=== PATIENT | female | born 1990 | race Caucasian/White ===

== ENCOUNTER 2017-11-12 09:31 | Inpatient (IN) | payer OTHER ==
[2017-11-12] MEDS ORDERED: METHYLERGONOVINE 0.2 MG INJ IM ×3 (10:00→18:30)
[2017-11-12] MEDS ORDERED: IBUPROFEN 600 MG TAB PO (10:00)
[2017-11-12] MEDS ORDERED: CARBOPROST 250 MCG INJ IM ×3 (10:00→18:30)
[2017-11-12] MEDS ORDERED: AMPICILLIN 2 GM/NS (PMX) 100 ML IV (10:00)
[2017-11-12] MEDS ORDERED: MISOPROSTOL 200 MCG TAB PR ×3 (10:00→18:30)
[2017-11-12] MEDS ORDERED: OXYTOCIN 30 UNITS/LR 500 ML IV ×4 (10:00→18:30)
[2017-11-12] MEDS ORDERED: BUTORPHANOL 2 MG INJ IV (10:00)
[2017-11-12] MEDS ORDERED: LIDOCAINE 1% (MPF) 30 ML INJ INJ (10:00)
[2017-11-12] MEDS ORDERED: CEFAZOLIN 2 GM/50 ML (PMX) 50 ML IVPB (10:18)
[2017-11-12] MEDS ORDERED: CEFAZOLIN 2 GM/50 ML (PMX) 50 ML IV (10:30)
[2017-11-12 10:35] LABS: ADD MAN DIFF? NO
[2017-11-12 10:54] LABS: BASOPHILS % 0.5 % (0.0-2.0); EOSINOPHILS # 0.1 10^3/ul (0.0-0.5); EOSINOPHILS % 0.8 % (0.0-7.0); HEMATOCRIT 34.5 % (37.0-47.0); HEMOGLOBIN 11.1 g/dl (12.0-16.0); LYMPHOCYTES # 1.5 10^3/ul (0.8-2.9); LYMPHOCYTES % 23.4 % (15.0-51.0); MEAN CORPUSCULAR HEMOGLOBIN 28.1 pg (29.0-33.0); MEAN CORPUSCULAR HGB CONC 32.2 g/dl (32.0-37.0); MEAN CORPUSCULAR VOLUME 87.3 fl (82.0-101.0); MONOCYTE # 0.4 10^3/ul (0.3-0.9); MONOCYTES % 6.7 % (0.0-11.0); NEUTROPHIL # 4.3 10^3/ul (1.6-7.5); PLATELET COUNT 243 10^3/UL (140-415); RED BLOOD COUNT 3.95 10^6/ul (4.20-5.40); RED CELL DISTRIBUTION WIDTH 17.8 % (11.5-14.5)
[2017-11-12 10:54] LABS: WHITE BLOOD COUNT 6.3 10^3/ul (4.8-10.8)
[2017-11-12] MEDS: LACTATED RINGER'S 1,000 ML IV ×2 (10:59→12:03)
[2017-11-12] MEDS: AMPICILLIN 2 GM/NS (PMX) 100 ML IV (10:59)
[2017-11-12 11:07] LABS: INR 1.01; PROTIME 13.4 Sec (11.9-14.9)
[2017-11-12 11:08] LABS: PARTIAL THROMBOPLASTIN TIME 30.4 Sec (25.0-35.0)
[2017-11-12 11:45] LABS: HEPATITIS B SURFACE ANTIGEN NEGATIVE (NEGATIVE)
[2017-11-12] MEDS ORDERED: CITRIC ACID/SODIUM CITRATE 15 ML CUP (12:17)
[2017-11-12] MEDS: CITRIC ACID/SODIUM CITRATE 15 ML CUP PO (13:11)
[2017-11-12] MEDS ORDERED: AMPICILLIN 1 GM/NS (PMX) 50 ML IV (14:00)
[2017-11-12] MEDS ORDERED: KETOROLAC 30 MG INJ (14:05)
[2017-11-12] MEDS ORDERED: morphine SULFATE/PF (10 MG/10 ML) INJ (14:05)
[2017-11-12] MEDS ORDERED: METOCLOPRAMIDE 10 MG INJ (14:05)
[2017-11-12] MEDS ORDERED: ONDANSETRON 4 MG INJ (14:05)
[2017-11-12] MEDS ORDERED: PHENYLephrine (100 MCG/ML) 5ML SYG (14:18)
[2017-11-12] MEDS: OXYTOCIN 30 UNITS/LR 500 ML IV ×2 (15:37→18:46)
[2017-11-12] MEDS ORDERED: morphine (1 MG/ML) 10ML SYRINGE IV ×3 (17:00)
[2017-11-12] MEDS ORDERED: morphine 2 MG INJ IV ×3 (17:00)
[2017-11-12] MEDS ORDERED: NALOXONE (0.4 MG/ML) INJ IV (17:00)
[2017-11-12] MEDS ORDERED: ONDANSETRON 4 MG INJ IV ×2 (17:00)
[2017-11-12] MEDS: DIPHENHYDRAMINE 50 MG INJ IV (17:09)
[2017-11-12] MEDS ORDERED: VITAMIN A & D 5 GM OINT PACKET TOP (18:13)
[2017-11-12] MEDS ORDERED: HYDROCODONE/APAP (5/325) TAB PO ×2 (18:30)
[2017-11-12] MEDS ORDERED: LANOLIN 7 GM TUBE TOP (18:30)
[2017-11-12] MEDS: SENNA/DOCUSATE NA (8.6MG/50MG) TAB PO (21:00)
[2017-11-12] MEDS: CEFAZOLIN 1 GM/50 ML (PMX) 50 ML IVPB (22:07)
[2017-11-12 22:57] LABS: RAPID PLASMA REAGIN NONREACTIVE (NR)
[2017-11-13] MEDS: OXYTOCIN 30 UNITS/LR 500 ML IV ×7 (00:51→22:26)
[2017-11-13] MEDS: KETOROLAC 30 MG INJ IV ×2 (01:05→08:07)
[2017-11-13] MEDS: SENNA/DOCUSATE NA (8.6MG/50MG) TAB PO ×2 (08:07→21:19)
[2017-11-13 09:15] LABS: ADD MAN DIFF? NO
[2017-11-13 09:16] LABS: BASOPHILS % 0.3 % (0.0-2.0); EOSINOPHILS % 0.4 % (0.0-7.0); HEMATOCRIT 31.3 % (37.0-47.0); HEMOGLOBIN 10.3 g/dl (12.0-16.0); LYMPHOCYTES # 1.1 10^3/ul (0.8-2.9); LYMPHOCYTES % 12.1 % (15.0-51.0); MEAN CORPUSCULAR HEMOGLOBIN 28.6 pg (29.0-33.0); MEAN CORPUSCULAR HGB CONC 32.9 g/dl (32.0-37.0); MEAN CORPUSCULAR VOLUME 86.9 fl (82.0-101.0); MEAN PLATELET VOLUME 10.7 fl (7.4-10.4); MONOCYTE # 0.7 10^3/ul (0.3-0.9); MONOCYTES % 7.6 % (0.0-11.0); NEUTROPHIL # 7.5 10^3/ul (1.6-7.5); NEUTROPHILS % 79.3 % (39.0-77.0); PLATELET COUNT 194 10^3/UL (140-415); RED CELL DISTRIBUTION WIDTH 17.9 % (11.5-14.5)
[2017-11-13 09:16] LABS: WHITE BLOOD COUNT 9.4 10^3/ul (4.8-10.8)
[2017-11-13] MEDS: OXYCODONE/ACETAMINOPHEN (5/325) TAB PO ×2 (14:46→21:19)
[2017-11-13] MEDS: INFLUENZA VIRUS VACCINE 0.5 ML (DISPENSING) IM* (14:47)
[2017-11-13] MEDS: IBUPROFEN 600 MG TAB PO (17:33)
[2017-11-14] MEDS: IBUPROFEN 600 MG TAB PO ×5 (00:30→23:51)
[2017-11-14] MEDS: OXYTOCIN 30 UNITS/LR 500 ML IV ×3 (02:26→10:26)
[2017-11-14] MEDS: OXYCODONE/ACETAMINOPHEN (5/325) TAB PO ×2 (09:18→21:33)
[2017-11-14] MEDS: SENNA/DOCUSATE NA (8.6MG/50MG) TAB PO ×2 (09:18→21:33)
[2017-11-14] MEDS: NA PHOSPHATE/BIPHOS 133 ML ENEMA PR (21:35)
[2017-11-15] MEDS: OXYCODONE/ACETAMINOPHEN (5/325) TAB PO (00:02)
[2017-11-15] MEDS: IBUPROFEN 600 MG TAB PO ×2 (05:56→11:40)
[2017-11-15] MEDS: DIPHTH/TET/ACEL PERTUSS (ADULT) 0.5 ML VIAL IM* (07:42)
[2017-11-15] MEDS: SENNA/DOCUSATE NA (8.6MG/50MG) TAB PO (08:34)
== END 2017-11-15 13:19 | disposition home or self-care (01) | DRG 766 ==
LOC: L-D 09:31 → PP1 18:07
PROVIDERS: Obstetrics & Gynecology
PROC: 10D00Z1 Extraction of Products of Conception, Low, Open Approach (ICD-10-PCS; principal; 2017-11-12 12:30)
DX: O34.211 Maternal care for low transverse scar from previous cesarean delivery (principal); Z37.0 Single live birth; Z3A.39 39 weeks gestation of pregnancy
CPT/HCPCS: 85025; 85610; 85730; 86592; 86850; 86900; 86901; 87340; 90686; 90715; 94760; 99464